=== PATIENT | female | born 1995 | race Caucasian/White ===

== ENCOUNTER 2017-04-30 03:55 | Inpatient (IN) | payer SELFPAY ==
[2017-04-30] MEDS ORDERED: RINGER'S SOLUTION,LACTATED 1,000 ML IV PRN (04:36)
[2017-04-30] MEDS ORDERED: BUTORPHANOL TARTRATE 2 MG/ML VIAL IV PRN (04:38)
[2017-04-30] MEDS ORDERED: NALOXONE HCL 1 MG/1 ML SYRG IV PRN (11:52)
[2017-04-30] MEDS ORDERED: ONDANSETRON HCL/PF 2 MG/ML VIAL IV PRN (11:52)
[2017-04-30] MEDS ORDERED: BUPIVACAINE HCL/0.9 % NACL/PF 250 ML EP PRN (11:52)
[2017-04-30] MEDS ORDERED: RINGER'S SOLUTION,LACTATED 1,000 ML IV ONE (11:53)
[2017-04-30] MEDS ORDERED: OXYTOCIN/DEXTROSE 5%-WATER 30 UNITS/500 ML BAG IV ONE ×2 (11:53→14:16)
[2017-04-30] MEDS ORDERED: DEXTROSE 5%-LACTATED RINGERS 1,000 ML IV PRN (11:53)
[2017-04-30] MEDS ORDERED: LIDOCAINE HCL 50 ML VIAL PERI PRN (11:53)
[2017-04-30] MEDS ORDERED: fentaNYL CITRATE/PF 50 MCG/ML AMPUL IT SCH (12:00)
--- NOTE | 2017-04-30 12:31 | OR ---
Anesthesia Procedure Note - Anesthesia Procedure Note Narrative: Vital Signs - Last Taken Temp 36.7 C 04/30/17 12:04 Pulse 56 L 04/30/17 12:04 Resp 18 04/30/17 12:04 BP 121/69 04/30/17 12:04 Pulse Ox 97 04/30/17 12:04 04/30/17 12:29 ANESTHESIA PROCEDURE NOTE Date of Procedure: Time of procedure: 1220. Performed by: Refugio Manzo CRNA Fruit Picker: None. Preprocedure diagnosis: Active labor. Post procedure diagnosis: Same. Procedure: Insertion of labor epidural. Indications: The patient is a 21 -year-old prima para female in active labor requesting labor epidural for pain management. Findings: See below. Details of the procedure: The patient was placed in a sitting position. Back was prepped with DuraPrep. Patient was then draped in a sterile fashion. Lidocaine 1% was infiltrated to the skin and subcutaneous tissues at the level of the L3 4 interspace. The epidural space was identified using a 18-gauge Tuohy needle with [id number] technique. 20 mcg fentanyl was given intrathecally using a 27 ga. spinal needle. Epidural catheter was inserted without difficulty. Negative test dose was elicited using 5 mL of 1.5% preservative-free lidocaine plus epinephrine 1 200,000. The epidural catheter was then taped and secured in place. EBL: Minimal. Fluids: N/A. Specimen: N/A. Post procedure condition: The patient tolerated the procedure well. No complications were noted. Thank you for this consultation. Urban CRNA
[2017-04-30] MEDS ORDERED: BENZOCAINE/MENTHOL 81 SPRAY CAN TP PRN (14:16)
[2017-04-30] MEDS ORDERED: oxyCODONE HCL/ACETAMINOPHEN 1 TAB TABLET PO PRN ×2 (14:16)
[2017-04-30] MEDS ORDERED: SENNOSIDES 8.6 MG TABLET PO PRN (14:16)
[2017-04-30] MEDS ORDERED: BISACODYL 10 MG SUPP.RECT RC PRN (14:16)
[2017-04-30] MEDS ORDERED: HYDROCORTISONE 30 APPL TUBE TP PRN (14:16)
[2017-04-30] MEDS ORDERED: GLYCERIN/WITCH HAZEL LEAF 40 APPL BOX TP PRN (14:16)
[2017-04-30] MEDS ORDERED: IBUPROFEN 800 MG TABLET PO PRN (14:16)
--- NOTE | 2017-04-30 14:18 | OR ---
Operative Report - Dictated Report Narrative: Spontaneous vaginal delivery of viable female at 1356 on 04/30/2017 with Apgars 9 and 9, weighing 2980 g in VANESSA position. Cord clamping delayed approximately 1 minute Placenta delivered complete, intact, with three vessel cord Estimated blood loss: less than 50 ml Lacerations: None, right labial abrasion - repair needed. History for MU Definition: * The number of deliveries resulting in a live the patient experienced prior to current hospitalization * The previous delivery of live twins or any live multiple gestation is considered one live event. *If primagravida or nulliparous is documented select zero for the number of previous live births. Live Events: 0
[2017-04-30] MEDS: DOCUSATE SODIUM 100 MG CAPSULE PO SCH (21:15)
[2017-05-01 11:20] VITALS: BP 101/56
[2017-05-01] MEDS: DOCUSATE SODIUM 100 MG CAPSULE PO SCH (11:59)
--- NOTE | 2017-05-01 17:42 | PN ---
Subjective - Date and Time Seen Date: 05/01/17 Time: 17:41 Objective - Vitals Vitals: Last Vital Signs Temp 37.2 C 05/01/17 10:45 Pulse 85 05/01/17 10:45 Resp 18 05/01/17 10:45 BP 101/56 05/01/17 10:45 Pulse Ox 98 05/01/17 01:00 Patient denies complaints. Lochia wnl Abdomen - soft, nontender Uterus - firm, at umbilicus - 1 No calf tenderness Impression: day #1 - s/p spontaneous vaginal delivery. Patient desires early discharge. Plan: Continue routine care. Routine discharge instructions.
== END 2017-05-01 19:00 | disposition home or self-care (01) | DRG 775 ==
LOC: OB 03:55
PROVIDERS: ADMIT Obstetrics & Gynecology; ATTEND Obstetrics & Gynecology
PROC: 10E0XZZ Delivery of Products of Conception, External Approach (ICD-10-PCS; principal; 2017-04-30)
PROC: 4A1HXCZ Monitoring of Products of Conception, Cardiac Rate, External Approach (ICD-10-PCS; 2017-04-30)
PROC: 00HU33Z Insertion of Infusion Device into Spinal Canal, Percutaneous Approach (ICD-10-PCS; 2017-04-30)
DX: O99.02 Anemia complicating childbirth (principal); D64.9 Anemia, unspecified; Z3A.39 39 weeks gestation of pregnancy; Z37.0 Single live birth

== ENCOUNTER 2018-03-17 22:04 | Observation (INO) ==
[2018-03-17 18:26] LABS: Hematocrit 40.2 % (37.0-47.0); Hemoglobin 13.6 gm/dL (12.5-16.0); Mean Cell Volume 87.6 fl (78-100); Mean Corpuscular Hemoglobin 29.6 pg (27-31); Mean Corpuscular Hgb Conc 33.8 g/dl (32-36); Mean Platelet Volume 10.6 fl (8-12.5); Neutrophil # 10.7 K/mm3 (1.3-6.0); Neutrophil % 87.7 % (42-75.0); Platelet Count 222 K/mm3 (150-450); Red Blood Count 4.59 M/mm3 (4.2-5.4); White Blood Count 12.2 K/mm3 (4.0-10.5)
[2018-03-17 18:31] LABS: Urine Bilirubin 1 mg/dl (NEGATIVE); Urine Blood 50 /ul (NEGATIVE); Urine Ketone 50 mg/dL (NEGATIVE); Urine Nitrite Negative (NEGATIVE); Urine Protein 100 mg/dL (NEGATIVE); Urine Specific Gravity >=1.030 SP.GR. (1.005-1.010); Urine Urobilinogen Normal (NORMAL); Urine pH 5.5 pH (5.0-7.0)
[2018-03-17 18:40] LABS: Albumin * 4.6 gm/dl (3.4-5.0); BUN/Creatinine Ratio 15.5 (9.0-21.6); Bilirubin, Total 0.9 mg/dL (0.0-1.1); Calcium * 9.8 mg/dL (7.9-10.9); Carbon Dioxide 25.3 mmol/L (24-32.6); Potassium 4.3 mmol/L (3.4-4.6); Total Protein 9.7 gm/dL (6.2-8.2)
--- NOTE | 2018-03-17 19:10 | ERNOTE ---
<Sanford Santoyo - Last Filed: 03/17/18 19:05> Abdominal HPI - Narrative Date of Service: 03/17/18 - General Chief Complaint: Abdominal Pain Time Seen by Provider: 03/17/18 18:12 Source: patient Exam Limitations: no limitations - Immun/Allergies/Home Medications Immunizatons: IMMUNIZATION HX Immunizations Up to Date Yes Allergies/Adverse Reactions: Allergies No Known Allergies Allergy (Verified 03/17/18 18:10) Home Medications: HOME MEDICATIONS NK 03/17/18 [Last Taken Unknown] - History of Present Illness Narrative: Patient presents to the ED for RLQ pain. This began 2 days ago. It has been getting progressively worse. She has never had this before. At rest it is mild but can be severe with walking or palpation. No clear fever. Minimal diarrhea, has vomited with this and is nauseated. Has not seen anyone else for this. Not sure if she is , breast feeding for 10 months without menses. Timing: constant, getting worse Quality: mild Activities at Onset: none Modifying Factors - (Improves): Present: lying down Modifying Factors - (Worsens): Present: other - walking Associated Symptoms: Present: vomiting. Absent: back pain, chest pain, shortness of breath Prior Abdominal Problems: Present: none Prior Treatment: Absent: recently seen Review of Systems - Review of Systems Constitutional: Absent: fever ENT: Absent: sore throat Respiratory: Absent: shortness of breath Cardiology: Absent: chest pain Gastrointestinal/Abdominal: Present: abdominal pain Genitourinary: Absent: dysuria Skin: Absent: rash Neurological: Absent: weakness All Other Systems: All systems neg except as marked Social History: Preferred Language Belgian Smoking Status Never smoker Alcohol Use none Drug Use none Physical Exam - Physical Exam General Appearance: Present: alert, no apparent distress Head Exam: Present: normal inspection, no evidence of injury Eye Exam: Normal inspection: bilateral, PERRL: bilateral Ears, Nose, Throat: Present: normal ENT inspection Neck: Present: normal inspection Respiratory: Present: no respiratory distress, normal breath sounds, no accessory muscle use, lungs clear Cardiovascular/Chest: Present: regular rate, rhythm, normal peripheral pulses Gastrointestinal/Abdominal: Present: normal bowel sounds, nondistended, soft, tenderness, other - RLQ tendenress with guarding and rebound Back Exam: Absent: CVA tenderness (R), CVA tenderness (L) Extremity Exam: Present: normal inspection Neurological Exam: Present: alert, no motor/sensory deficits Skin Exam: Present: normal color, warm/dry ED Progress - Results and Orders Patient's Lab Results:: I have reviewed the patient's lab results. - Vital Signs Patient's Vital Signs:: I have reviewed the patient's vital signs. Vital Signs: Vital Signs 03/17/18 18:04 Temperature 36.7 C Pulse Rate 82 Respiratory Rate 16 Blood Pressure 115/69 O2 Sat by Pulse Oximetry 100 - CT/Ultrasound CT/Ultrasound Narrative: Pending at time of handover - Progress/Reassessment Chief Complaint: Abdominal Pain Progress Note-Subjective: 03/17/18 19:09 Patient not . Clinically I feel appendicitis is likely. CT pending at time of handover. - Transfer of Care Physician Sign Out: Sanford Santoyo Receiving Physician: Raymundo Villalobos Pending Results: CT/MRI results Departure Clinical Impression: Abdominal pain Appendicitis Qualifiers: Appendicitis type: acute appendicitis Acute appendicitis type: with localized peritonitis Qualified Code(s): K35.3 - Acute appendicitis with localized peritonitis - Departure Disposition: Still a patient Condition: Stable <Raymundo Villalobos - Last Filed: 03/18/18 04:14> Abdominal HPI - Immun/Allergies/Home Medications Immunizatons: IMMUNIZATION HX Immunizations Up to Date Yes Social History: Preferred Language Belgian Smoking Status Never smoker Alcohol Use none Drug Use none ED Progress - Vital Signs Vital Signs: Vital Signs 03/17/18 20:52 03/17/18 21:40 03/17/18 22:05 Temperature 36.6 C 36.5 C 37.1 C Pulse Rate 81 80 73 Respiratory Rate 16 16 16 Blood Pressure 117/70 118/69 117/65 O2 Sat by Pulse Oximetry 99 99 100 03/17/18 22:30 03/18/18 01:25 03/18/18 01:50 Temperature 37.1 C 37.2 C Pulse Rate 75 56 L 55 L Respiratory Rate 16 16 16 Blood Pressure 116/71 117/68 110/62 O2 Sat by Pulse Oximetry 99 99 97 03/18/18 02:05 03/18/18 02:20 03/18/18 03:38 Temperature 36.7 C Pulse Rate 56 L 59 L 62 Respiratory Rate 16 16 20 Blood Pressure 109/59 106/60 111/60 O2 Sat by Pulse Oximetry 98 98 98 - CT/Ultrasound CT/Ultrasound Narrative: CT abd pelvis with contrast: IMPRESSION: ACUTE UNCOMPLICATED APPENDICITIS. Electronically signed by Vishnu Aceves D.O.. - Progress/Reassessment Progress Note-Subjective: Dr. Cadena was contacted when CT results were received. He saw the patient in the ED and took her to surgery directly from the ED. Pt remained in stable and satisfactory condition while in the ED.
[2018-03-17 19:22] LABS: Urine Color Yellow
[2018-03-17 19:23] LABS: Urine Appearance Slightly Cloudy (CLEAR); Urine Bacteria None Seen; Urine RBC 0-5 /hpf (0-5); Urine WBC None Seen /hpf (0-5)
[~2018-03-17 22:04] MED LIST: DIATRIZOATE MEGLUMINE, SODIUM 30 ML BTL PO ONE; NORMAL SALINE 1,000 ML IV ONE; ONDANSETRON HCL/PF 2 MG/ML VIAL IV ONE; ONDANSETRON HCL/PF 2 MG/ML VIAL ONE
--- NOTE | 2018-03-17 22:27 | HP ---
Chief Complaint - Chief Complaint Date of Service: 03/17/18 Time of Service: 22:14 Chief Complaint: abdominal pain and vomiting History of Present Illness: She started with RLQ pain on 03/14-06/23. She developed vomiting today and presented to ER. She was found to have RLQ tenderness, elevated WBC, and CT scan evidence of acute appendicitis. Medical History (Last Updated 03/17/18 @ 22:18 by Antonio Cadena MD) No chronic diseases present Family History: Family History (Last Updated 03/17/18 @ 22:20 by Antonio Cadena MD) Other Medical history non-contributory Social History: Preferred Language Yoruba Smoking Status Never smoker Alcohol Use none Drug Use none Review Of Systems (GEN) - Review of Systems Generalized/Overall Review: Present: Malaise EENTM: Present: No Symptoms Reported Respiratory: Present: No Symptoms Reported Cardiac: Present: No Symptoms Reported Abdominal: Present: Nausea, Vomiting, Abdominal Pain, Other - diarrhea yesterday , no BM today Genitourinary: Present: No Symptoms Reported Musculoskeletal: Present: No Symptoms Reported Neurological: Present: No Symptoms Reported Skin: Present: No Symptoms Reported Immunizations: IMMUNIZATION HX Immunizations Up to Date Yes Allergies/Adverse Reactions: Allergies Allergy/AdvReac Type Severity Reaction Status Date / Time No Known Allergies Allergy Verified 03/17/18 18:10 Home Medications: HOME MEDICATIONS NK 03/17/18 [Last Taken Unknown] Exam - Exam Vital Signs: Vital Signs - Last Taken Temp 37.1 C 03/17/18 22:05 Pulse 73 03/17/18 22:05 Resp 16 03/17/18 22:05 BP 117/65 03/17/18 22:05 Pulse Ox 100 03/17/18 22:05 Constitutional: Present: Alert, Oriented x3, Cooperative, Well developed, Mild distress ENT Exam: Present: normal ENT inspection, other - Malampati 2 airway Eye Exam: bilateral eye: normal inspection Neck: Present: full range of motion, normal inspection Back Exam: Present: other - scoliosis Respiratory: Present: normal breath sounds, no respiratory distress Cardiovascular/Chest: Present: normal peripheral pulses, regular rate, rhythm, no murmur Abdomen: Present: other - RLQ tenderness /Rectal: Present: Exam deferred Extremity: Present: normal range of motion, no pedal edema, no calf tenderness Skin Exam: Present: normal color, warm/dry Neurologic: Present: flake or shred roll operator II-XII nml as tested, no motor/sensory deficits Appearance: Present: appropriate appearance, appropriate insight, neat Eye contact: Present: cooperative, good eye contact Thoughts: Present: normal thought pattern Diagnostic Studies: Abnormal Lab Results 03/17/18 03/17/18 03/17/18 Range/Units 18:24 18:24 Unknown WBC 12.2 H (4.0-10.5) K/mm3 Neutrophils % 87.7 H (42-75.0) % Lymphocytes % 8.1 L (20-51) % Neutrophils # 10.7 H (1.3-6.0) K/mm3 Lymphocytes # 0.99 L (1.5-3.5) k/mm3 Anion Gap 19.0 H (6.8-13.8) mmol/L Total Protein 9.7 H (6.2-8.2) gm/dL Urine Protein 100 H (NEGATIVE) mg/dL Urine Blood 50 H (NEGATIVE) /ul Urine Bilirubin 1 H (NEGATIVE) mg/dl Laboratory Results WBC 12.2 K/mm3 (4.0-10.5) H 03/17/18 18:24 RBC 4.59 M/mm3 (4.2-5.4) 03/17/18 18:24 Hgb 13.6 gm/dL (12.5-16.0) 03/17/18 18:24 Hct 40.2 % (37.0-47.0) 03/17/18 18:24 MCV 87.6 fl (78-100) 03/17/18 18:24 MCH 29.6 pg (27-31) 03/17/18 18:24 MCHC 33.8 g/dl (32-36) 03/17/18 18:24 RDW 13.0 % (11.5-14.0) 03/17/18 18:24 Plt Count 222 K/mm3 (150-450) 03/17/18 18:24 MPV 10.6 fl (8-12.5) 03/17/18 18:24 Immature Gran % (Auto) 0.20 % (0.001-0.429) 03/17/18 18:24 Immature Gran # (Auto) 0.03 K/mm3 (0.000-0.0310) 03/17/18 18:24 Neutrophils % 87.7 % (42-75.0) H 03/17/18 18:24 Lymphocytes % 8.1 % (20-51) L 03/17/18 18:24 Monocytes % 3.8 % (0.0-9) 03/17/18 18:24 Eosinophils % 0.0 % (0.0-3.0) 03/17/18 18:24 Basophils % 0.2 % (0.0-1.0) 03/17/18 18: Nucleated RBC % 0.0 k/mm3 (0-1) 03/17/18 18:24 Neutrophils # 10.7 K/mm3 (1.3-6.0) H 03/17/18 18:24 Lymphocytes # 0.99 k/mm3 (1.5-3.5) L 03/17/18 18:24 Monocytes # 0.5 k/mm3 (0.0-1.0) 03/17/18 18: Eosinophils # 0.0 k/mm3 (0.0-0.7) 03/17/18 18: Absolute Basophils 0.0 k/mm3 (0.0-0.1) 03/17/18 18:24 Sodium 140 mmol/L (132-142) 03/17/18 18:24 Plasma Sodium 140 mmol/L (130-142) 03/17/18 18:24 Potassium 4.3 mmol/L (3.4-4.6) 03/17/18 18:24 Chloride 100 mmol/L (97-106) 03/17/18 18:24 Carbon Dioxide 25.3 mmol/L (24-32.6) 03/17/18 18:24 Anion Gap 19.0 mmol/L (6.8-13.8) H 03/17/18 18:24 BUN 11 mg/dL (3-23) 03/17/18 18:24 Creatinine 0.71 mg/dL (0.4-1.4) 03/17/18 18:24 Est GFR (Non-Af Amer) 109 mL/min (60-130) 03/17/18 18:24 BUN/Creatinine Ratio 15.5 (9.0-21.6) 03/17/18 18:24 Random Glucose 107 mg/dL (70-110) 03/17/18 18:24 Calcium 9.8 mg/dL (7.9-10.9) 03/17/18 18:24 Calcium Adj for Albumin 9.0 mg/dL (8.4-10.2) 03/17/18 18:24 Total Bilirubin 0.9 mg/dL (0.0-1.1) 03/17/18 18:24 AST 21 U/L (0-48) 03/17/18 18:24 ALT 22 U/L (19-67) 03/17/18 18:24 Alkaline Phosphatase 74 U/L (50-170) 03/17/18 18:24 Total Protein 9.7 gm/dL (6.2-8.2) H 03/17/18 18:24 Albumin 4.6 gm/dl (3.4-5.0) 03/17/18 18:24 Amylase 85 U/L (25-115) 03/17/18 18:24 Lipase 101 U/L (73-393) 03/17/18 18:24 Urine Color Yellow 03/17/18 Unknown Urine Appearance Slightly cloudy (CLEAR) 03/17/18 Unknown Urine pH 5.5 pH (5.0-7.0) 03/17/18 Unknown Ur Specific [place] >=1.030 SP.GR. (1.005-1.010) 03/17/18 Unknown Urine Protein 100 mg/dL (NEGATIVE) H 03/17/18 Unknown Urine Glucose (UA) Negative mg/dL (NEGATIVE) 03/17/18 Unknown Urine Ketones 50 mg/dL (NEGATIVE) 03/17/18 Unknown Urine Blood 50 /ul (NEGATIVE) H 03/17/18 Unknown Urine Nitrate Negative (NEGATIVE) 03/17/18 Unknown Urine Bilirubin 1 mg/dl (NEGATIVE) H 03/17/18 Unknown Urine Ictotest Negative (NEGATIVE) 03/17/18 Unknown Prot Sulfosalicylic Acd Negative mg/dL (0) 03/17/18 Unknown Urine Urobilinogen Normal EU/dl (NORMAL) 03/17/18 Unknown Ur Leukocyte Esterase Negative /ul (NEGATIVE) 03/17/18 Unknown Urine RBC 0-5 /hpf (0-5) 03/17/18 Unknown Urine WBC None seen /hpf (0-5) 03/17/18 Unknown Ur Epithelial Cells 0-5 /hpf (0-5) 03/17/18 Unknown Urine Bacteria None seen (NONE) 03/17/18 Unknown Urine Culture Comments No culture indicated 03/17/18 Unknown Urine HCG, Qual Negative (NEGATIVE) 03/17/18 Unknown Blood Type A Positive 03/17/18 18:27 Antibody Screen Negative 03/17/18 18:27 CT shows acute appendicitis Assessment/Plan - Assessment/Plan (1) Appendicitis Assessment: Explained appendicitis and appendectomy including the risks and possible complications (including possible open operation). After an interactive discussion, her questions were answered to her apparent satisfaction and she has given informed consent for appendectomy. Chlorhesidine wipes, IV Mefoxin, SCD's. Problem: Acute Qualifiers: Appendicitis type: acute appendicitis
--- NOTE | 2018-03-17 22:28 | ANES ---
Anesthesia Pre Procedure Eval Vitals/Labs: Last Vital Signs Temp 37.1 C 03/17/18 22:05 Pulse 73 03/17/18 22:05 Resp 16 03/17/18 22:05 BP 117/65 03/17/18 22:05 Pulse Ox 100 03/17/18 22:05 Laboratory Last Values WBC 12.2 K/mm3 (4.0-10.5) H 03/17/18 18:24 RBC 4.59 M/mm3 (4.2-5.4) 03/17/18 18:24 Hgb 13.6 gm/dL (12.5-16.0) 03/17/18 18:24 Hct 40.2 % (37.0-47.0) 03/17/18 18: MCV 87.6 fl (78-100) 03/17/18 18: MCH 29.6 pg (27-31) 03/17/18 18: MCHC 33.8 g/dl (32-36) 03/17/18 18: RDW 13.0 % (11.5-14.0) 03/17/18 18:24 Plt Count 222 K/mm3 (150-450) 03/17/18 18:24 MPV 10.6 fl (8-12.5) 03/17/18 18:24 Immature Gran % (Auto) 0.20 % (0.001-0.429) 03/17/18 18: Immature Gran # (Auto) 0.03 K/mm3 (0.000-0.0310) 03/17/18 18:24 Neutrophils % 87.7 % (42-75.0) H 03/17/18 18:24 Lymphocytes % 8.1 % (20-51) L 03/17/18 18:24 Monocytes % 3.8 % (0.0-9) 03/17/18 18:24 Eosinophils % 0.0 % (0.0-3.0) 03/17/18 18: Basophils % 0.2 % (0.0-1.0) 03/17/18 18:24 Nucleated RBC % 0.0 k/mm3 (0-1) 03/17/18 18:24 Neutrophils # 10.7 K/mm3 (1.3-6.0) H 03/17/18 18:24 Lymphocytes # 0.99 k/mm3 (1.5-3.5) L 03/17/18 18:24 Monocytes # 0.5 k/mm3 (0.0-1.0) 03/17/18 18:24 Eosinophils # 0.0 k/mm3 (0.0-0.7) 03/17/18 18:24 Absolute Basophils 0.0 k/mm3 (0.0-0.1) 03/17/18 18:24 Sodium 140 mmol/L (132-142) 03/17/18 18:24 Plasma Sodium 140 mmol/L (130-142) 03/17/18 18:24 Potassium 4.3 mmol/L (3.4-4.6) 03/17/18 18:24 Chloride 100 mmol/L (97-106) 03/17/18 18:24 Carbon Dioxide 25.3 mmol/L (24-32.6) 03/17/18 18:24 Anion Gap 19.0 mmol/L (6.8-13.8) H 03/17/18 18:24 BUN 11 mg/dL (3-23) 03/17/18 18:24 Creatinine 0.71 mg/dL (0.4-1.4) 03/17/18 18:24 Est GFR (Non-Af Amer) 109 mL/min (60-130) 03/17/18 18:24 BUN/Creatinine Ratio 15.5 (9.0-21.6) 03/17/18 18:24 Random Glucose 107 mg/dL (70-110) 03/17/18 18:24 Calcium 9.8 mg/dL (7.9-10.9) 03/17/18 18:24 Calcium Adj for Albumin 9.0 mg/dL (8.4-10.2) 03/17/18 18:24 Total Bilirubin 0.9 mg/dL (0.0-1.1) 03/17/18 18:24 AST 21 U/L (0-48) 03/17/18 18:24 ALT 22 U/L (19-67) 03/17/18 18:24 Alkaline Phosphatase 74 U/L (50-170) 03/17/18 18:24 Total Protein 9.7 gm/dL (6.2-8.2) H 03/17/18 18:24 Albumin 4.6 gm/dl (3.4-5.0) 03/17/18 18:24 Amylase 85 U/L (25-115) 03/17/18 18:24 Lipase 101 U/L (73-393) 03/17/18 18:24 Urine Color Yellow 03/17/18 Unknown Urine Appearance Slightly cloudy (CLEAR) 03/17/18 Unknown Urine pH 5.5 pH (5.0-7.0) 03/17/18 Unknown Ur Specific [place] >=1.030 SP.GR. (1.005-1.010) 03/17/18 Unknown Urine Protein 100 mg/dL (NEGATIVE) H 03/17/18 Unknown Urine Glucose (UA) Negative mg/dL (NEGATIVE) 03/17/18 Unknown Urine Ketones 50 mg/dL (NEGATIVE) 03/17/18 Unknown Urine Blood 50 /ul (NEGATIVE) H 03/17/18 Unknown Urine Nitrate Negative (NEGATIVE) 03/17/18 Unknown Urine Bilirubin 1 mg/dl (NEGATIVE) H 03/17/18 Unknown Urine Ictotest Negative (NEGATIVE) 03/17/18 Unknown Prot Sulfosalicylic Acd Negative mg/dL (0) 03/17/18 Unknown Urine Urobilinogen Normal EU/dl (NORMAL) 03/17/18 Unknown Ur Leukocyte Esterase Negative /ul (NEGATIVE) 03/17/18 Unknown Urine RBC 0-5 /hpf (0-5) 03/17/18 Unknown Urine WBC None seen /hpf (0-5) 03/17/18 Unknown Ur Epithelial Cells 0-5 /hpf (0-5) 03/17/18 Unknown Urine Bacteria None seen (NONE) 03/17/18 Unknown Urine Culture Comments No culture indicated 03/17/18 Unknown Urine HCG, Qual Negative (NEGATIVE) 03/17/18 Unknown Blood Type A Positive 03/17/18 18:27 Antibody Screen Negative 03/17/18 18:27 HOME MEDICATIONS NK 03/17/18 [Last Taken Unknown] Allergies/Adverse Reactions: Allergies Allergy/AdvReac Type Severity Reaction Status Date / Time No Known Allergies Allergy Verified 03/17/18 18:10 - Planned Procedure Planned Procedure: Lap appy Medication List Reviewed:: Yes Allergies Verified: Yes Medical History (Last Reviewed 03/17/18 @ 22:27 by Raghavendra Woodall CRNA) No chronic diseases present Family History (Last Reviewed 03/17/18 @ 22:28 by Raghavendra Woodall CRNA) Other Medical history non-contributory - Family Anesthesia History Family History:: no untoward family reactions to anesthesia, no familial bleeding tendencies, no family history of clotting disorders, no family history of premature - Airway/Neck/Teeth Within Normal Limits:: Yes Teeth Condition: Intact Mallampatti Score: 4 Thyromental (T-M) distance: > 6 cm Mandibulo Hyoid distance: > 3 cm - Respiratory Respiratory: lungs clear Smoking Status: Never smoker Discussed smoking cessation including day of surgery: No Sleep Apnea currently treated: No Sleep Apnea by current assessment: No Discussed Risks/Treatment of DARLINE: No - Cardiovascular Tolerates Activity: Good Heart Sounds: S1 & S2, Regular - Anesthesia Assessment and Plan ASA Class: PS, I, E Anesthesia Type Plan: General ET Planned difficult intubation/equipment available: No
[2018-03-17] MEDS ORDERED: CEFOXITIN SODIUM 2 GM in DEXTROSE 5 % IN WATER 100 ML IV PRN ×2 (22:30)
[2018-03-17] MEDS ORDERED: BUPIVACAINE HCL/EPINEPHRINE 50 ML VIAL IJ PRN (22:30)
[2018-03-17] MEDS ORDERED: RINGER'S SOLUTION,LACTATED 1,000 ML IV PRN (22:30)
[2018-03-18] MEDS ORDERED: MORPHINE SULFATE 2 MG/ML DISP.SYRIN IV PRN (00:31)
[2018-03-18] MEDS ORDERED: ONDANSETRON HCL/PF 2 MG/ML VIAL IV PRN (00:31)
[2018-03-18] MEDS ORDERED: RINGER'S SOLUTION,LACTATED 1,000 ML IV PRN (00:31)
[2018-03-18] MEDS ORDERED: oxyCODONE HCL/ACETAMINOPHEN 1 TAB TABLET PO PRN (00:31)
--- NOTE | 2018-03-18 00:43 | OR ---
Operative Report - Dictated Report Narrative: Date of operation 03/17/2018 Preoperative diagnosis: Acute appendicitis Postoperative diagnosis: Advanced acute appendicitis with probable local perforation Operation: Laparoscopic appendectomy Surgeon: OUMOU Cadena MD Anesthesia: Gen. maryjane Woodall CRNA Indications for procedure: The patient is a 22-year-old female who began with abdominal pain on Wednesday or Wednesday. She then developed some diarrhea. She then developed nausea and vomiting and diarrhea resolved. She presented to the emergency room was evaluated and found to have right lower quadrant pain and tenderness elevated white blood cell count CT scan compatible with acute appendicitis Findings: Advanced acute appendicitis with localized perforation Narrative of procedure: The patient was identified preoperatively, and prior to the administration of anesthetic a multidisciplinary timeout was observed. The patient was placed supine, SCDs were applied, and 2 g of intravenous Mefoxin administered. General endotracheal anesthetic was administered. The patient's abdomen was prepped with Betadine solution, and a generous operating field outlined with 4 sterile towels. The remainder the patient was covered with a sterile disposable drape. A transverse infraumbilical skin incision was made, and dissection was carried along the umbilical stalk until the fascia of the linea alba was encountered. This was incised. The peritoneum was elevated and incised to allow entry into the abdomen under direct vision. A Hussan cannula was placed and the abdomen insufflated with CO2. The laparoscopic camera was introduced and the abdomen briefly explored. Those portions of the liver, gallbladder, stomach, small and large intestine visualized appeared normal. There was some clear green fluid in the pelvis. There was an inflammatory mass adjacent to the cecum but the appendix was not immediately visible. Next under direct vision, 2 additional working ports were inserted through separate skin incisions, one in the suprapubic area one in the left lower quadrant. The right lower quadrant was explored and the tip of an acutely inflamed appendix visualized. The tip was gradually elevated and the mesoappendix developed by blunt dissection. There was a pocket of pus which was entered and completely suctioned. Eventually the appendix had been traced back to the base. Could then be transected by a single application of the laparoscopic LORENZA stapler. The mesoappendix appeared hemostatic. The stump of the appendix appeared gas and liquid tight. The appendix was placed in an Endobag and parked in the right lower quadrant. The paracolic area and pelvis were again suctioned clean and hemostasis assured. The small working ports were then withdrawn under direct vision to ensure entry site hemostasis. The appendix was removed in conjunction with the Hussan cannula. The pneumoperitoneum was allowed to escape, and after receiving a correct sponge needle and instrument count attention was turned to closing the abdomen. The fascia and peritoneum at the umbilicus were approximated with interrupted sutures of #1 Vicryl. Skin incisions were approximated with interrupted vertical mattress sutures of 4-0 nylon. The operative sites were washed and dried. Dressings of Bactroban ointment and large Band-Aids were applied to the small port sites. The umbilical incision was dressed with Bactroban ointment, 2 x 2, large Band-Aid, and Medipore tape. The operative procedure was terminated at this point. There was no measurable blood loss. 0.5% Marcaine with epinephrine was used for local anesthetic infiltration area the appendix was submitted to pathology. The patient tolerated the anesthetic and procedure well without complication and was transferred to the recovery room awake, extubated, and in stable condition. Reviewed and electronically signed
--- NOTE | 2018-03-18 00:47 | ANES ---
Post Anesthesia Discharge - Transfer of Care Transfer of Care handoff given to nurse: Yes - Discharge from PACU Discharge from PACU when meets criteria: Yes - Discharge to ASU Discharge to ASU-no complications/pt stable: Yes
--- NOTE | 2018-03-18 00:47 | ANES ---
Post Anesthesia Assessment - Vital Signs Vitals: Last Vital Signs Temp 37.1 C 03/17/18 22:30 Pulse 75 03/17/18 22:30 Resp 16 03/17/18 22:30 BP 116/71 03/17/18 22:30 Pulse Ox 99 03/17/18 22:30 Airway Patency: Normal - Mental Status Level Of Consciousness: Awake - Pain Level Pain Score: 0 - N/V Assessment Dehydration:: No
[2018-03-18] MEDS ORDERED: CEFOXITIN SODIUM 2 GM in DEXTROSE 5 % IN WATER 100 ML IV SCH ×4 (05:00→11:00)
[2018-03-18 11:53] VITALS: BP 106/61
--- NOTE | 2018-03-18 12:01 | DS ---
(1) Appendicitis Problem: Acute Qualifiers: Appendicitis type: acute appendicitis Acute appendicitis type: with localized peritonitis Qualified Code(s): K35.3 - Acute appendicitis with localized peritonitis Description of Stay: She underwent laparoscopic appendectomy for advanced acute appendicitis. Chlorhexidine wipes, pre and post-op IV Mefoxin, SCD's early ambulation. Presenting pain resolved and incisional discomfort tolerable. Incisions clean. tolerated advanced diet and OOB independently. VS remained normal. Home, instructions given, OTC med for pain. Clinic appointment for 03/25/18 at ( AM. Has #'s to call for questions or concerns Procedures Performed: see notes below - laparoscopic appendectomy Results and Findings: Lab Pending Results 03/17/18 03/17/18 03/17/18 18:24 18:24 18:27 WBC 12.2 H RBC 4.59 Hgb 13.6 Hct 40.2 MCV 87.6 MCH 29.6 MCHC 33.8 RDW 13.0 Plt Count 222 MPV 10.6 Immature Gran % (Auto) 0.20 Immature Gran # (Auto) 0.03 Neutrophils % 87.7 H Lymphocytes % 8.1 L Monocytes % 3.8 Eosinophils % 0.0 Basophils % 0.2 Nucleated RBC % 0.0 Neutrophils # 10.7 H Lymphocytes # 0.99 L Monocytes # 0.5 Eosinophils # 0.0 Absolute Basophils 0.0 Sodium 140 Plasma Sodium 140 Potassium 4.3 Chloride 100 Carbon Dioxide 25.3 Anion Gap 19.0 H BUN 11 Creatinine 0.71 Est GFR (Non-Af Amer) 109 BUN/Creatinine Ratio 15.5 Random Glucose 107 Calcium 9.8 Calcium Adj for Albumin 9.0 Total Bilirubin 0.9 AST 21 ALT 22 Alkaline Phosphatase 74 Total Protein 9.7 H Albumin 4.6 Amylase 85 Lipase 101 Urine Color Urine Appearance Urine pH Ur Specific [place] Urine Protein Urine Glucose (UA) Urine Ketones Urine Blood Urine Nitrate Urine Bilirubin Urine Ictotest Prot Sulfosalicylic Acd Urine Urobilinogen Ur Leukocyte Esterase Urine RBC Urine WBC Ur Epithelial Cells Urine Bacteria Urine Culture Comments Urine HCG, Qual Blood Type A Positive Antibody Screen Negative 03/17/18 03/17/18 Unknown Unknown WBC RBC Hgb Hct MCV MCH MCHC RDW Plt Count MPV Immature Gran % (Auto) Immature Gran # (Auto) Neutrophils % Lymphocytes % Monocytes % Eosinophils % Basophils % Nucleated RBC % Neutrophils # Lymphocytes # Monocytes # Eosinophils # Absolute Basophils Sodium Plasma Sodium Potassium Chloride Carbon Dioxide Anion Gap BUN Creatinine Est GFR (Non-Af Amer) BUN/Creatinine Ratio Random Glucose Calcium Calcium Adj for Albumin Total Bilirubin AST ALT Alkaline Phosphatase Total Protein Albumin Amylase Lipase Urine Color Yellow Urine Appearance Slightly cloudy Urine pH 5.5 Ur Specific [place] >=1.030 Urine Protein 100 H Urine Glucose (UA) Negative Urine Ketones 50 Urine Blood 50 H Urine Nitrate Negative Urine Bilirubin 1 H Urine Ictotest Negative Prot Sulfosalicylic Acd Negative Urine Urobilinogen Normal Ur Leukocyte Esterase Negative Urine RBC 0-5 Urine WBC None seen Ur Epithelial Cells 0-5 Urine Bacteria None seen Urine Culture Comments No culture indicated Urine HCG, Qual Negative Blood Type Antibody Screen Discharge Location: Home Disposition: Home self-care Condition: Good Discharge Activity: Activity as tolerated, No Lifting Discharge Diet: General/regular food Problem Oriented Discharge Instructions to Patient/Family: Laparoscopic Appendectomy, Adult, Care After, [id number] Additional Patient Instructions (free text): Follow-up appointment with Dr. Cadena next March 25, at 9:00 AM. Complete Home Medications List: Complete Home Medication List: NK 03/17/18
== END 2018-03-18 12:15 | disposition home or self-care (01) ==
LOC: SUR 22:04 → MS 22:04 → SUR 22:42 → EDSTATUS 23:12 → SUR 03-18 09:01
PROVIDERS: ADMIT Surgery; ATTEND Surgery
CPT/HCPCS: 36415; 74177; 80053; 81001; 82150; 83690; 84703; 85025; 86850; 86900; 88304; J2405